=== PATIENT | female | born 1970 | race Caucasian/White ===

== ENCOUNTER 2022-05-29 20:26 | Emergency (ER) | payer MEDICARE, MEDICAID ==
[~2022-05-29] VITALS: Ht 157.4 cm; Wt 84.3 kg
[2022-05-29] MEDS ORDERED: BUPR1TAB44 (21:19)
--- NOTE | 2022-05-29 21:25 | ED Trauma-Multisystem ---
General Chief Complaint: Trauma-Non Activation Stated Complaint: FALL Nursing Triage Note: Patient arrival per POV accompanied by female relative ambulating into ED to 1. Pt's relative giving detailed event of pt fall but patient is directed by staff to give her chief complaint and hx. Pt has fallen tonight in her kitchen because her socks were slick and landed on buttocks then back of head struck refrigerator. No LOC. c/o posterior head, coccyx, and low back pain. This is second fall in 3 weeks, last seen at [facility] ER at [place]. Pt's PCP Annamarie Baker @ [facility]. Pt is under a pain management contract with Amelia Greene MD @ [facility]. Buprenorphine/Nalox taken at 1930 by pt. Source of Information: Patient, Family Exam Limitations: No Limitations (FLAVIA ALMEIDA) History of Present Illness Date Seen by Provider: May 29, 2022 Time Seen by Provider: 20:32 Initial Comments Mrs. Castillo is a 52 yo F with PMH significant for osteoporosis, DM, neuropathy and multiple spinal interventions who presents to the ED with complaints of MSK pain following a witnessed GLF which occurred approximately 7:00PM, without LOC or systemic contributing factors such as dizziness or lighth eadedness. She does note that she was only wearing socks and the floor can be slippery & her diabetic nephropathy reduces her pedal sensation when ambulating. Pt localizes pain to left hip, left shoulder and occiput, constant and dull in character, worse with movement, improves with rest. She is ambulatory without assistance. Denies N/V/F changes in vision/hearing or dizziness. Does endorse increasing frequency of chills and constipation since starting buprenophine 1 wk ago. Location Injury Occurred: Home residence/ kitchen Occurred: Just Prior to Arrival, This Evening Severity: Mild Pain/Injury Location: Back, Head, Upper Extremity, Pelvis Method of Injury: Fall Modifying Factors: Immobilization, Movement, Pain Medication, Rest Loss of Consciousness: No Loss of Consciousness Associated Symptoms (Fall): Denies Symptoms; No Abdominal Pain, No Chest Pain, No Confusion, No Dizziness, No Lightheadedness, No Muscle Spasms, No Nausea/Vomiting, No Seizures, No Shortness of Air, No Trouble Walking, No Vision Changes (FLAVIA ALMEIDA) Allergies and Home Medications Allergies Coded Allergies: Penicillins (Unverified Adverse Reaction, Mild, Itching/Hives, 05/29/22) atorvastatin (Unverified Adverse Reaction, Mild, Myalgias, 05/29/22) budesonide (Unverified Adverse Reaction, Mild, Thrush/mouth blisters, 05/29/22) dexamethasone (Unverified Adverse Reaction, Mild, Itching/hives, 05/29/22) doxycycline (Unverified Adverse Reaction, Mild, Itching/hives, 05/29/22) formoterol (Unverified Adverse Reaction, Mild, Thrush/mouth blisters, 05/29/22) levofloxacin (Unverified Adverse Reaction, Mild, Itching/hives, 05/29/22) sulfamethoxazole (Unverified Adverse Reaction, Mild, Itching/Hives, 05/29/22) trimethoprim (Unverified Adverse Reaction, Mild, Itching/Hives, 05/29/22) Patient Home Medication List Home Medication List Reviewed: Yes (SOPHIA SOTELO MD) Buprenorphine HCl/Naloxone HCl (Buprenorphn-Naloxn 2-0.5 mg Sl) 2 Mg-0.5 Mg Tab.subl, (Reported) Entered as Reported by: BARTOLO EASTMAN on 05/29/222118 Last Action: New Order Gabapentin (Gabapentin) 600 Mg Tablet, (Reported) Entered as Reported by: BARTOLO EASTMAN on 05/29/222256 Last Action: New Order Pramipexole Di-HCl (Pramipexole Dihydrochloride) 0.25 Mg Tablet, 0.25 MG PO DAILY, (Reported) Entered as Reported by: BARTOLO EASTMAN on 05/29/222256 Last Action: New Order Propranolol HCl (Propranolol HCl) 40 Mg Tablet, (Reported) Entered as Reported by: BARTOLO EASTMAN on 05/29/222256 Last Action: New Order Semaglutide (Ozempic) 0.25 Mg/0.2 Ml Pen.injctr, (Reported) Entered as Reported by: BARTOLO EASTMAN on 05/29/222256 Last Action: New Order Review of Systems Review of Systems Constitutional: chills; No dizziness, No fever, No malaise, No weakness Eyes: Denies Vision Changes Ears: Denies Dizziness Nose: No Symptoms Reported Mouth: No Symptoms Reported Throat: No Symptoms to Report Respiratory: No dyspnea on exertion, No short of breath Cardiovascular: Denies Chest Pain, Denies Irregular Heart Rate, Denies Lightheadedness, Denies Palpitations Gastrointestinal: No abdominal pain; constipation; No diarrhea, No melena, No nausea, No vomiting Genitourinary: No dysuria, No hematuria Musculoskeletal: back pain, muscle pain, muscle stiffness; No muscle weakness Skin: No change in color, No lesions, No lumps, No pruritus, No rash Psychiatric/Neurological: Denies Anxiety, Denies Headache; Numbness; Denies Tingling, Denies Weakness (FLAVIA ALMEIDA) Past Jerbgqb-Mvpjbj-Pinknj Hx Patient Social History Tobacco Use?: No Tobacco type used: Cigarettes Smoking Status: Former Smoker Use of E-Cig and/or Vaping dev: No Substance use?: No Alcohol Use?: No (SOPHIA SOTELO MD) Past Medical History Surgeries: Yes (Nerve stimulator) Abdominal (D&C, lap Joss), Adenoidectomy, Section, Eye Surgery (Cataracts), Gallbladder, Hysterectomy, Orthopedic (Ganglion cyst, kyphoplasty, lumbar laminectomy), Tonsillectomy Respiratory: Yes Asthma, Pneumonia, Sleep Apnea, COPD Neurological: Yes (RLS) Headaches /Migraines, Neuropathy Gastrointestinal: Yes Liver Disease/Jaundice, Esquivel's Esophagus Musculoskeletal: Yes Osteoporosis, Chronic Back Pain Endocrine: Yes Diabetes, Insulin dep Cancer: No Psychosocial: No Integumentary: Yes (Diabetic foot ulcer) (SOPHIA SOTELO MD) Physical Exam Vital Signs Vital Signs - First Documented (SOPHIA SOTELO MD) Height, Weight, BMI Height: '" Weight: lbs. oz. kg; 34.00 BMI Method: General Appearance: No Apparent Distress, WD/WN, Obese Head: No Evidence of Injury, Tenderness (with palp to occiput); No Lacerations, No Swelling Eyes: Bilateral Eye Normal Inspection, Bilateral Eye PERRL, Bilateral Eye EOMI Ears, Nose, Throat: Hearing Grossly Normal, No Evidence of ENT Injury, No De ntal Injury Neck: Full Range of Motion, Normal Inspection, Supple, Tender Lateral (with palp to C7-T2 region) Cardiovascular: Regular Rate, Rhythm, No Murmur, Normal Peripheral Pulses Respiratory: Chest Non Tender, Lungs Clear, Normal Breath Sounds, No Accessory Muscle Use, No Respiratory Distress Gastrointestinal: Normal Bowel Sounds, No Organomegaly, No Pulsatile Mass, Non Tender, Soft Back: No CVA Tenderness, Vertebral Tenderness Extremity: Normal Capillary Refill, Normal Range of Motion, No Calf Tenderness, No Pedal Edema, Other (tenderness with Palp to left scapula and left hip - no pain with PROM, + pain with AROM) Neurologic/Psychiatric: Alert, Oriented x3, No Motor/Sensory Deficits, Normal Mood/Affect, litigation secretary II-XII Norm as Tested Skin: Normal Color, Warm/Dry Lymphatic: No Adenopathy (FLAVIA ALMEIDA) Delgado Coma Score Best Eye Response (Delgado): (4) Open Spontaneously Best Verbal Response (Delgado): (5) Oriented Best Motor Response (Grubbs): (6) Obeys Commands (FLAVIA ALMEIDA) Progress/Results/Core Measures Results/Orders Lab Results Laboratory Tests Test 05/29/22 20:31 Range/Units Urine Color PALE YELLOW Urine Clarity CLEAR Urine pH 7.0 5-9 Urine Specific [place] <=1.005 1.016-1.022 Urine Protein NEGATIVE NEGATIVE Urine Glucose (UA) NEGATIVE NEGATIVE Urine Ketones NEGATIVE NEGATIVE Urine Nitrite NEGATIVE NEGATIVE Urine Bilirubin NEGATIVE NEGATIVE Urine Urobilinogen 1.0 < = 1.0 MG/DL Urine Leukocyte Esterase NEGATIVE NEGATIVE Urine RBC (Auto) NEGATIVE NEGATIVE Urine RBC NONE /HPF Urine WBC 0-2 /HPF Urine Squamous Epithelial Cells 0-2 /HPF Urine Crystals NONE /LPF Urine Bacteria NEGATIVE /HPF Urine Casts NONE /LPF Urine Mucus NEGATIVE /LPF Urine Culture Indicated NO (SOPHIA SOTELO MD) My Orders Orders - SOPHIA SOTELO MD Ua Culture If Indicated (05/29/22 21:07) Ct Head/Cervical Spine Wo (05/29/22 21:25) Ct Pelvis Wo (05/29/22 21:25) Shoulder 3 View Left (05/29/22 21:25) Ct Thoracic/Lumbar Spine Wo (05/29/22 21:53) (SOPHIA SOTELO MD) Vital Signs/I&O 05/29/22 05/29/22 05/29/22 20:31 20:31 23:00 Temp 36.4 36.4 36.5 Pulse 77 77 75 Resp 18 18 16 B/P (MAP) 114/65 (81) 114/65 (81) 108/58 Pulse Ox 97 97 96 O2 Delivery Room Air Room Air Room Air (SOPHIA SOTELO MD) Blood Pressure Mean: 81 Progress Progress Note : Progress Note Patient was interviewed and examined by me as well as MS4. She has extensive past medical history with many active medical problems. I inquired about the goals of her ER visit today. She states she has no significant medical concerns. She has felt very well today. She does not believe any lab work or urinalysis is necessary. She is primarily concerned about evaluating her injuries. Her primary areas of pain include her head, neck, scattered spine, and sacral region. She also complains of left scapular pain. Vital signs are stable and unremarkable. CT imaging was obtained of the head, spine, and pelvis. Plain x-rays were obtained of the left shoulder. All imaging studies were viewed by me. There was significant kyphosis, degenerative disease, and postoperative kyphoplasty cement noted. No acute fractures, dislocations, or other injuries were appreciated by my interpretation. [facility] reports of the he ad, spine, and pelvis CTs were also reviewed. No acute injuries were appreciated by the [facility] physician either. Urinalysis was reviewed by me and was unremarkable. Ultimately, no significant injuries were observed on exam or imaging studies. Patient was discharged home. See discharge instructions for further discussion. (SOPHIA SOTELO MD) Diagnostic Imaging Diagonstic Imaging: Xray Plain Films/CT/US/NM/MRI: other (Left shoulder) Comments Left shoulder x-rays viewed by me. Reports not yet available. No acute inju beth were identified. Diagonstic Imaging: CT Plain Films/CT/US/NM/MRI: c-spine, head, other (Thoracolumbar spine) Comments CT of the head and CTs of the spine were reviewed by me. No acute injuries were identified by my interpretation. [facility] report was also reviewed and no acute injuries were identified by the [facility] radiologist. (SOPHIA SOTELO MD) Departure Impression Primary Impression: Fall on same level Qualified Codes: W18.30XA - Fall on same level, unspecified, initial encounter Additional Impressions: Neck pain Minor head injury Qualified Codes: S09.90XA - Unspecified injury of head, initial encounter Back pain Qualified Codes: M54.9 - Dorsalgia, unspecified Left shoulder pain Qualified Codes: M25.512 - Pain in left shoulder Disposition: 01 HOME, SELF-CARE Condition: Stable Departure-Patient Inst. Decision time for Depature: 22:58 (SOPHIA SOTELO MD) Referrals: NO,LOCAL PHYSICIAN (PCP/Family) Primary Care Physician Patient Instructions: Preventing Falls ED Add. Discharge Instructions: Take your pain medication as previously directed. Drink plenty of clear liquids to stay well-hydrated. Avoid being sedentary for prolonged periods of time as this may cause worsening stiffness and pain. You may add Tylenol (acetaminophen) up to 1000 mg every 6 hours as needed to the pain medication you are taking. Topical preparations such as lidocaine creams and patches may be used. Icing affected areas in 20-minute intervals over the next 24 to 48 hours may be hel pful. A warm shower or bath to relax stiff muscles may also be helpful. Return to care if you have worsening symptoms despite following these instructions. All discharge instructions reviewed with patient and/or family. Voiced understanding. Medical Student Attestation and Attending Note: I have personally interviewed and examined this patient along with Flavia Almeida, MS4. I have reviewed student documentation including history, physical, and assessments. I agree with the documentation except where otherwise noted. Exam: General: Alert, oriented, no acute distress, well developed HEENT: Normocephalic and atraumatic, TTP of inferior occiput Neck: Posterior superior TTP Heart: Regular rate and rhythm without murmur Lungs: Clear to auscultation bilaterally with normal effort Ext: posterior left shoulder TTP Abdomen: Soft, nontender, nondistended, normal bowel sounds Neuropsych: Alert, oriented, no focal deficits Skin: Warm and dry without rashes (SOPHIA SOTELO MD) FLAVIA ALMEIDA May 29, 2022 21:25 SOPHIA SOTELO MD May 29, 2022 23:00
[2022-05-29 21:45] LABS: BILIRUBIN,URINE NEGATIVE (NEGATIVE); CLARITY,URINE CLEAR; GLUCOSE, URINE (UA) NEGATIVE (NEGATIVE); KETONES,URINE NEGATIVE (NEGATIVE); LEUKOCYTE ESTERASE ,URINE NEGATIVE (NEGATIVE); NITRITE,URINE NEGATIVE (NEGATIVE); PROTEIN,URINE NEGATIVE (NEGATIVE)
[2022-05-29 21:50] LABS: COLOR,URINE PALE YELLOW
[2022-05-29 21:51] LABS: BACTERIA,URINE NEGATIVE /HPF; SQUAMOUS EPITHELIAL CELL,UR 0-2 /HPF; WBC,URINE 0-2 /HPF
[2022-05-29] MEDS ORDERED: PROP40TA5 (22:57)
[2022-05-29] MEDS ORDERED: SEMA0.25 (22:57)
[2022-05-29] MEDS ORDERED: PRAM0.257 PO (22:57)
[2022-05-29] MEDS ORDERED: GBPN600T (22:57)
[2022-05-29 23:00] VITALS: BP 108/58
--- NOTE | 2022-05-30 07:46 | Diagnostic Imaging Report ---
INDICATION: Fall, shoulder pain COMPARISON: None. FINDINGS: 3 views of the left shoulder were obtained. There is no fracture, dislocation, or other acute bony abnormality identified. The soft tissues appear unremarkable. No radiopaque foreign body is identified. The visualized portions of the left lung are clear. IMPRESSION: No acute fractures or dislocations of the left shoulder. Dictated by: Dictated on workstation # [id number]
--- NOTE | 2022-05-30 07:53 | Diagnostic Imaging Report ---
PROCEDURE: CT thoracic and lumbar spine without contrast. TECHNIQUE: Multiple contiguous axial images were obtained through the thoracic and lumbar spine without the use of intravenous contrast. Sagittal and coronal reformations were then performed. All CT scans use one or more of the following dose optimizing techniques: automated exposure control, MA and/or KvP adjustment based on a patient size and exam type, or iterative reconstruction. INDICATION: Back pain status post fall. COMPARISON: None FINDINGS: CT thoracic spine: There is exaggerated kyphosis of the lower thoracic spine secondary to chronic compression deformities of T10 and T11. There is also intervertebral disc height loss more prominent at T10 and T11. There is however no significant anteroretrolisthesis. There is no evidence of jumped facets. Patient is status post previous cement augmentation at T10 and T11. Injected cement appears appropriately positioned. No new vertebral body height loss is seen. There is no evidence of new acute fracture. Mild multilevel degenerative changes are noted. Indwelling neurostimulator device is also present. Stimulator lead terminates over the T8 and T9 levels. Pre and paravertebral soft tissue structures are unremarkable. Visualized portions the lungs are clear. CT lumbar spine: Static alignment of the lumbar spine is maintained. There is no significant anteroretrolisthesis. There is no evidence of jumped facets. Vertebral body heights are preserved. There is no acute fracture. No bony fragments are seen within the spinal canal. Mild multilevel degenerative changes are noted and consistent intervertebral disc height loss with endplate osteophyte formations and multilevel facet arthropathy. Pre and paravertebral soft tissue structures are unremarkable. Note is made of moderate scattered calcified aortic arch atherosclerosis. IMPRESSION: 1. No acute fracture or dislocation of the thoracic or lumbar spine. 2. Prior cement augmentation at T10 and T11. 3. Mild multilevel degenerative changes. Dictated by: Dictated on workstation # [id number]
--- NOTE | 2022-05-30 07:54 | Diagnostic Imaging Report ---
PROCEDURE: CT pelvis without contrast. TECHNIQUE: Multiple contiguous axial images were obtained through the pelvis without the use of intravenous contrast. Sagittal and coronal reformations were performed. Auto Exposure Controls were utilized during the CT exam to meet ALARA standards for radiation dose reduction. INDICATION: Pelvic pain status post fall with injury. COMPARISON: None FINDINGS: There is no acute fracture of the pelvis. SI joints are symmetric. Pubic symphysis is within normal limits. There is no evidence of diastases. Bilateral femoral acetabular joint spaces are maintained as well. No lytic or blastic bony lesions are seen. Surrounding soft tissue structures show no additional acute abnormalities. Right-sided neurostimulator device is noted. Moderate air and stool is also seen within the colon. IMPRESSION: 1. No acute fracture or dislocation of the pelvis. Dictated by: Dictated on workstation # [id number]
--- NOTE | 2022-05-30 08:01 | Diagnostic Imaging Report ---
PROCEDURE: CT head and CT cervical spine without contrast. TECHNIQUE: Multiple contiguous axial images were obtained through the brain and cervical spine without the use of intravenous contrast. Sagittal and coronal reformations through the cervical spine were then performed. Auto Exposure Controls were utilized during the CT exam to meet ALARA standards for radiation dose reduction. INDICATION: Fall with traumatic injury to the head and neck. COMPARISON: None FINDINGS: CT head: Ventricles and cortical sulci are age-appropriate. There is no midline shift or mass-effect. No acute intra-axial hemorrhage is seen. There are no abnormal areas of increased or decreased density to suggest acute hemorrhage or edema. No extra-axial masses or collections are present. The bony calvarium is intact. The visualized paranasal sinuses are unremarkable. The mastoid air cells are clear. CT cervical spine: Static alignment of the cervical spine is maintained. There is no significant anteroretrolisthesis. There is no evidence of jumped facets. Vertebral body heights are maintained. There is no acute fracture. No bony fragments are seen within the spinal canal. Mild multilevel degenerative changes are noted. Pre and paravertebral soft tissue structures are unremarkable. Note is made of calcified carotid atherosclerosis IMPRESSION: 1. No acute intracranial abnormality. No CT evidence of mass, acute infarct or intracranial hemorrhage. 2. No acute fracture or dislocation of the cervical spine. Dictated by: Dictated on workstation # [id number]
== END 2022-05-29 23:00 | disposition home or self-care (01) ==
LOC: ER FS 20:28
DX: S09.90XA Unspecified injury of head, initial encounter (principal); M54.2 Cervicalgia; M54.50 Low back pain, unspecified; M25.512 Pain in left shoulder; M40.204 Unspecified kyphosis, thoracic region; M51.34 Other intervertebral disc degeneration, thoracic region; E11.9 Type 2 diabetes mellitus without complications; E66.9 Obesity, unspecified; Z68.34 Body mass index [BMI] 34.0-34.9, adult; Z79.4 Long term (current) use of insulin; Z98.890 Other specified postprocedural states; Z87.891 Personal history of nicotine dependence; W18.30XA Fall on same level, unspecified, initial encounter; W22.8XXA Striking against or struck by other objects, initial encounter; Y92.000 Kitchen of unspecified non-institutional (private) residence as the place of occurrence of the external cause
CPT/HCPCS: 70450; 72125; 72128; 72131; 72192; 73030; 81000